=== PATIENT | female | born 1955 ===

== ENCOUNTER 2019-02-27 10:35 | Emergency (ER) | payer OTHER ==
[~2019-02-27] VITALS: Ht 162.6 cm; Wt 87.5 kg
[2019-02-27] MEDS ORDERED: OMEPRAZOLE MAGN20 MG (11:01)
[2019-02-27] MEDS ORDERED: SYNTHROID137 MCG (11:01)
[2019-02-27] MEDS ORDERED: TOPROL XL50 M1 (11:02)
[2019-02-27] MEDS ORDERED: CALTRATE 600+D1 EAC1 (11:02)
[2019-02-27] MEDS ORDERED: LOSARTAN POTASS25 MG (11:02)
[2019-02-27] MEDS ORDERED: GAS-X125 MG (11:03)
== END 2019-02-27 16:00 | disposition home or self-care (01) ==
LOC: ER 10:35
DX: K63.89 Other specified diseases of intestine (principal)